=== PATIENT | female | born 1970 | race Caucasian/White ===

== ENCOUNTER → 2020-04-18 | Outpatient (CLI) | payer BC, OTHER | LOC: US 10:26 | DX: R22.0 Localized swelling, mass and lump, head (principal) | CPT/HCPCS: 76536 ==

== ENCOUNTER → 2020-05-25 | Outpatient (CLI) | payer BC, OTHER | LOC: CT 09:17 | DX: R59.1 Generalized enlarged lymph nodes (principal) | CPT/HCPCS: 70491; Q9963 ==

== ENCOUNTER → 2020-07-03 | Outpatient (CLI) | payer BC, OTHER | LOC: MAMO 14:29 | DX: Z12.31 Encounter for screening mammogram for malignant neoplasm of breast (principal) | CPT/HCPCS: 77063; 77067 ==